=== PATIENT | male | born 1940 | race Caucasian/White ===

== ENCOUNTER → 2023-09-13 13:10 | Outpatient (REF) | payer MEDICARE, SELFPAY | LOC: RAD 13:10 | PROVIDERS: ATTENDING PHYSICIAN Surgery Vascular Surgery; FAMILY PHYSICIAN Family Medicine | DX: I73.9 Peripheral vascular disease, unspecified (principal) | CPT/HCPCS: 93922; 93925 ==

== ENCOUNTER 2023-10-06 06:34 | Day surgery (SDC) | payer MEDICARE, SELFPAY ==
[2023-10-06 10:10] VITALS: BP 158/85
[2023-10-06 10:14] VITALS: BMI 24.3
[2023-10-06 10:15] VITALS: BMI 24.3
[2023-10-06 11:34] VITALS: BP 118/85
[2023-10-06 11:45] VITALS: BP 130/70
== END 2023-10-06 12:25 | disposition home or self-care (01) ==
LOC: GI 06:34
PROVIDERS: ATTENDING PHYSICIAN Internal Medicine Gastroenterology
DX: Z12.11 Encounter for screening for malignant neoplasm of colon (principal); K64.8 Other hemorrhoids; K64.4 Residual hemorrhoidal skin tags; K57.30 Diverticulosis of large intestine without perforation or abscess without bleeding; D12.3 Benign neoplasm of transverse colon; R12 Heartburn; K31.89 Other diseases of stomach and duodenum; K29.50 Unspecified chronic gastritis without bleeding; K31.A0 Gastric intestinal metaplasia, unspecified; Z86.010 Personal history of colon polyps
CPT/HCPCS: 45380; 43239; 88305; 88342

== ENCOUNTER → 2023-10-25 15:16 | Outpatient (REF) | payer MEDICARE, SELFPAY | LOC: RAD 15:16 | PROVIDERS: ATTENDING PHYSICIAN Family Medicine; FAMILY PHYSICIAN Specialist | DX: R41.3 Other amnesia (principal) | CPT/HCPCS: 70450 ==

== ENCOUNTER → 2024-04-09 12:59 | Outpatient (REF) | payer MEDICARE, SELFPAY | LOC: RAD 12:59 | PROVIDERS: ATTENDING PHYSICIAN Registered Nurse; FAMILY PHYSICIAN Family Medicine | DX: I73.9 Peripheral vascular disease, unspecified (principal); I71.40 Abdominal aortic aneurysm, without rupture, unspecified; I70.1 Atherosclerosis of renal artery | CPT/HCPCS: 76770; 93922; 93925; 93975 ==

== ENCOUNTER → 2024-10-25 08:00 | Outpatient (REF) | payer MEDICARE, SELFPAY | LOC: DHVS 08:00 | PROVIDERS: ATTENDING PHYSICIAN Surgery Vascular Surgery | DX: I71.40 Abdominal aortic aneurysm, without rupture, unspecified (principal); I70.1 Atherosclerosis of renal artery; I73.9 Peripheral vascular disease, unspecified | CPT/HCPCS: 76770; 93922; 93925; 93975 ==

== ENCOUNTER → 2024-11-29 14:21 | Outpatient (REF) | payer MEDICARE, SELFPAY ==
[2024-11-29 15:34] LABS: Albumin 4.1 g/dl (3.5-5.0); Blood Urea Nitrogen 27 mg/dl (9-20); Calcium 10.5 mg/dl (8.4-10.2); Carbon Dioxide 27 mmol/L (22-30); Chloride 107 mmol/L (98-107); Glucose 89 mg/dl (70-99); Potassium 4.7 mmol/L (3.5-5.1); Sodium 139 mmol/L (135-145); eGFR 29.17
== END ==
LOC: REG 14:21
PROVIDERS: ATTENDING PHYSICIAN Family Medicine; OTHER PHYSICIAN Internal Medicine
DX: R79.89 Other specified abnormal findings of blood chemistry (principal)
CPT/HCPCS: 36415; 80069

== ENCOUNTER 2024-12-27 17:44 | Emergency (ER) | payer MEDICARE, SELFPAY ==
[2024-12-27 17:48] VITALS: BP 147/99
[2024-12-27 18:16] LABS: Hematocrit 43.5 % (39.0-52.0); Hemoglobin 14.2 g/dL (13.0-18.0); Mean Corp Hgb Conc. 32.6 g/dL (33.0-37.0); Mean Corpuscular Volume 92.9 fL (80.0-94.0); Nucleated Red Blood Cells % 0 % (-); Platelet Count 148 10^3/uL (130-400); Red Cell Dist. Width 13.6 % (11.5-14.5)
[2024-12-27 18:20] LABS: ALT (SGPT) 17 U/L (0-50); AST (SGOT) 29 U/L (17-59); Albumin 4.2 g/dl (3.5-5.0); Alkaline Phosphatase 57 U/L (38-126); Blood Urea Nitrogen 27 mg/dl (9-20); Calcium 10.1 mg/dl (8.4-10.2); Carbon Dioxide 25 mmol/L (22-30); Chloride 107 mmol/L (98-107); Glucose 134 mg/dl (70-99); Potassium 4.8 mmol/L (3.5-5.1); Sodium 137 mmol/L (135-145); Total Protein 6.8 g/dl (6.3-8.2); eGFR 37.12
[2024-12-27 18:32] LABS: Troponin I < 0.012 ng/ml
[2024-12-27 20:37] VITALS: BP 191/79
[2024-12-27 21:00] VITALS: BP 155/94
[2024-12-27 21:31] LABS: Troponin I < 0.012 ng/ml
--- NOTE | 2024-12-27 22:44 | ED.GENMED ---
History of Present Illness
General
Chief Complaint: Chest Pain
Time Seen by Provider: 12/27/24 20:40
History of Present Illness
History of Present Illness:
84-year-old male history of hypertension, previous [place] with cardiac stents, John's esophagus presenting with upper chest pressure radiating up into his neck starting this morning. Patient states that pressure comes and goes, last for up to 1
minute and then spontaneously resolves, unrelated to exertion. Patient denies shortness of breath. states that one time when it was happening she felt his head and felt he was clammy but no beads of sweat. Patient denies any nausea, vomiting
or abdominal pain. Patient states that he was able to walk the dog today with no chest pain or shortness of breath. Patient states he had cereal for breakfast, chicken salad for lunch with no worsening of symptoms.
Past History
Past History
ED Past Medical History: CAD and HTN
ED Past Surgical History: Cardiac and Urological (Cystoscopy)
Social History
Tobacco: Non-smoker
Alcohol: None
Drug: None
Personal:
Living: with family
Employment: Retired
Family History
Family History: Other (Noncontributory)
Phy Exam
Physical Exam
Physical Exam:
General: Alert, no acute distress
Head: NCAT
Eyes: clear conjunctiva
Neck: supple
Cardiac: regular rate and rhythm, no murmur
Lungs: clear to auscultation bilaterally. No wheezes, rales, or rhonchi. Speaking full unlabored sentences. No respiratory distress.
Abdomen: soft, nondistended nontender. No rebound or guarding.
MSK: no lower extremity edema bilaterally. No deformity
Skin: warm, dry
Neuro: Alert. no focal deficits
Scores
Heart Score for Chest Pain Patients
STEMI patient?: No
History: Moderately Suspicious
ECG: Nonspecific Repolarization
Age: >/= 65 years
Risk Factors: >/= 3 Risk Factors or History of CAD
Troponin: </= Normal Limit
Heart Score for Chest Pain Patients: 6
Heart Score Risk: 20.3% MACE over next 6 weeks
Course
Orders/Labs/Results
Orders:
Orders
12/27/24 17:46
Electrocardiogram (*1) Urgent
Reason for Study: Chest Pain
EKG- Treatment ONCE
12/27/24 17:57
Complete Blood Count/With Diff Urgent
Comprehensive Metabolic Panel Urgent
Troponin I Urgent
12/27/24 20:42
EKG- Treatment ONCE
CXR2 [CR Chest - 2 Views ] Urgent
Comment:
Reason For Exam: chest pain
12/27/24 20:47
Troponin I Urgent
12/27/24 21:00
Electrocardiogram (*1) Urgent
Reason for Study: Chest Pain
Abnormal Lab Results
12/27/24
17:57
RBC 4.68 L 10^6/uL
(4.70-6.10)
MCHC 32.6 L g/dL
(33.0-37.0)
BUN 27 H mg/dl
(9-20)
Creatinine 1.8 H mg/dL
(0.7-1.3)
Glucose 134 H mg/dl
(70-99)
12/27/24 17:57
12/27/24 17:57
Vital Signs
Initial and Last Documented VS:
Initial Vital Signs
Temp Pulse Resp BP Pulse Ox
97.6 F 77 16 147/99 99
12/27/24 17:48 12/27/24 17:48 12/27/24 17:48 12/27/24 17:48 12/27/24 17:48
Last Documented Vital Signs
Temp Pulse Resp BP Pulse Ox
97.6 F 92 19 155/94 98
12/27/24 17:48 12/27/24 21:15 12/27/24 21:15 12/27/24 21:00 12/27/24 22:46
MDM/Problems Addressed
Differential Diagnosis Includes:
NSTEMI, GERD, pneumothorax, unstable angina
MDM/Problems Addressed:
84-year-old male history of hypertension, previous KS, John's esophagus presenting with upper chest pressure radiating up into his neck lasting for less than 1 minute and spontaneous resolving multiple times today unrelated to exertion. Results
reviewed. Troponin negative x 2. Chest x-ray clear with no focal infiltrate or consolidation. Initial EKG shows paced rhythm at 76 bpm with WI 258 QTc 461 no STEMI. Repeat EKG shows paced rhythm at 60 bpm with WI 258 QTc 452 no STEMI. Discussed
results with patient at bedside. Recommended admission for cardiology consultation. Patient states that he has a neurology appointment tomorrow that he does not want and is requesting discharge. 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
project production engineer outpatient. Patient is currently chest pain-free. Discussed return precautions. Patient expressed verbal understanding.
*Pulse Oximetry
SaO2: 98
Oxygen Mode of Delivery: Room air
Patient hypoxic: no
*Critical Care Note
Total Time (30-74mins, 75-104mins- exclusive of procedures): Not Applicable
ED Attending Note
-
Portions of this chart may have been created with voice recognition software.� Occasional wrong word or��sound alike� substitutions may have occurred due to the inherent limitations of voice recognition software.
Discharge Plan
Departure
Patient Disposition: Home (Routine Discharge)
Date of Disposition: 12/27/24
Time of Disposition: 22:46
Patient with high blood pressure during this ER visit?: Yes
Discharge Problem:
Chest pain
Instructions: Chest Pain DCA Follow Up
Prescriptions:
No Action
aspirin 81 MG tablet,delayed release (DR/EC)
81 mg PO DAILY
metoprolol succinate [Toprol XL] 25 MG tablet extended release 24 hr
25 mg PO BID
benazepril [Lotensin] 10 MG tablet
10 mg PO DAILY
rosuvastatin [Crestor] 40 MG tablet
40 mg PO DAILY
fenofibrate nanocrystallized 48 MG tablet
48 mg PO DAILY
cholecalciferol (vitamin D3) 2,000 UNIT tablet
2,000 unit PO DAILY
acetaminophen 325 MG tablet
650 mg PO Q6HPRN PRN (Reason: mild pain/ fever>100.5F) 0RF
latanoprost 1 DROP drops
1 drp BOTH EYES HS
Benefiber Sugar Free (dextrin) 1 EACH powder in packet
1 tsp PO DAILY
finasteride 5 MG tablet
5 mg PO DAILY 30 Days Qty: 30 5RF
clopidogrel 75 mg Tablet
75 mg PO DAILY
famotidine 40 mg Tablet
40 mg PO DAILY
Referrals:
Yvonne Hart MD [Family Provider, Family Practice]
Activity Restrictions/Additional Instructions:
Follow-up with cardiology in 1 to 2 days
Return to emergency department for shortness of breath or new/worsening symptoms
Interventions
Interventions:
*Risk Screen - Suicide Last Done: 12/27/24 17:50
*General Assessment Last Done: 12/27/24 22:21
*Neglect/Abuse Screening Last Done: 12/27/24 17:50
*ED- Fall Risk Assessment Last Done: 12/27/24 22:21
*ED COVID-19 Vaccine History Last Done: 12/27/24 22:21
*Nursing Disposition Last Done: 12/27/24 22:51
ED- Cardiac Assessment Last Done: 12/27/24 22:21
Discharge Date and Time
Discharge Date/Time: 12/27/24 22:51
Print Language: CITIZ[place]
== END 2024-12-27 22:51 | disposition home or self-care (01) ==
LOC: EMR 17:44
PROVIDERS: Emergency Medicine; EMERGENCY PHYSICIAN Emergency Medicine; FAMILY PHYSICIAN Family Medicine
DX: R07.9 Chest pain, unspecified (principal); I25.10 Atherosclerotic heart disease of native coronary artery without angina pectoris; I10 Essential (primary) hypertension; I25.2 Old myocardial infarction; K22.70 Barrett's esophagus without dysplasia; Z95.5 Presence of coronary angioplasty implant and graft
CPT/HCPCS: 99284; 71046; 80053; 84484; 85025; 93005

== ENCOUNTER → 2025-01-07 13:58 | Outpatient (REF) | payer MEDICARE, SELFPAY | LOC: RCS 13:58 | PROVIDERS: ATTENDING PHYSICIAN Internal Medicine Cardiovascular Disease; FAMILY PHYSICIAN Family Medicine | DX: R07.2 Precordial pain (principal) | CPT/HCPCS: 93306 ==